=== PATIENT | male | born 1975 ===

== ENCOUNTER 2023-05-21 19:21 | Emergency (ER) | payer OTHER, SELFPAY ==
[2023-05-21] VITALS (7 sets, daily range): BP systolic 156–204; BP diastolic 89–126; PULSE 68–82; RESP 16–18; TEMP 36.7–37.1; O2SAT 96–99; BMI 21.3
--- NOTE | ~2023-05-21 | XR_ITS ---
EXAMINATION: XR CHEST CLINICAL INFORMATION: Chest pain COMPARISON: None available. TECHNIQUE: Frontal view of the chest was obtained. FINDINGS: No significant abnormality is noted involving the heart, lungs, mediastinum, bony thorax or soft tissues. XR/XR chest 1V IMPRESSION: Unremarkable chest examination.
--- NOTE | 2023-05-21 19:23 | ECG_ITS ---
Test Reason : CHEST PAIN Blood Pressure : / mmHG Vent. Rate : 073 BPM Atrial Rate : 073 BPM P-R Int : 148 ms QRS Dur : 080 ms QT Int : 390 ms P-R-T Axes : 070 014 021 degrees QTc Int : 429 ms Normal sinus rhythm Minimal voltage criteria for LVH, may be normal variant ( Sokolow-Muñoz ) Borderline ECG No previous ECGs available Referred By: Generic ED Physician Electronically Signed By:AVEL OGDEN MD
--- NOTE | 2023-05-21 19:51 | ED.CHESTPAIN ---
HPI - Chest Pain General Chief Complaint: Chest Pain Stated Complaint: chest pain, headache, high blood pressure Time Seen by Provider: 05/21/23 20:12 Source: patient Mode of arrival: ambulatory Limitations: no limitations History of Present Illness HPI narrative: Patient is a 47-year-old male who presents emergency department with multiple complaints. He states that in March of 2023 he was evaluated at [facility] for a kidney stone for which he had stent placement and was ultimately discharged home. He has yet to have a follow-up appointment with his primary care provider because it was noted that he was hypertensive during that hospital visit. His PCP appointment is scheduled for 05/29 through [place]. Over the past few weeks he has had intermittent episodes of diffuse headache, substernal/left anterior chest pain. He reports his symptoms were much more severe today and noted while he was outside leaf blowing he began feeling very hot in addition to having a severe sharp pain. His pain has been unchanged since its onset earlier this afternoon despite rest. He denies vision changes, dizziness, lightheadedness, neck pain, neck stiffness, shortness of breath, difficulty breathing, nausea vomiting, abdominal pain, numbness or tingling of the extremities. He additionally reports having rhinorrhea and a sore throat today. Related Data Previous Rx's Medication Instructions Recorded metoprolol tartrate 25 mg tablet 25 mg PO DAILY #30 tabs 05/22/23 Allergies Allergy/AdvReac Type Severity Reaction Status Date / Time morphine AdvReac Facial Verified 05/21/23 19:52 Swelling Review of Systems Review of Systems: Yes all other systems are reviewed and are negative [facility] Past Medical History Attestation statement: The following information was validated with the patient. Source: old records reviewed Social History Social History Smoked in Last 30 Days: Yes Use of substances other than those prescribed or required for medical reasons: Yes Substance Use Type: Marijuana Substance Use Frequency: Daily Advance Directives: No Physical Exam Vital Signs: Vital Signs: Last Vital Signs Temp 98.7 F 05/21/23 20:06 Pulse 68 05/21/23 22:19 Resp 16 05/21/23 22:19 BP 156/89 H 05/21/23 22:19 Pulse Ox 96 05/21/23 22:19 O2 Del Method Room Air 05/21/23 22:19 BMI result Body Mass Index 21.3 Appearance: Alert.?Oriented to person, place and time. No acute distress.?Normal affect. Eyes: Pupils equal, round and reactive to light.? ENT: Pharynx normal.?? Neck: Normal inspection.? Neck supple.?? CVS: Heart sounds normal. Normal heart rate and rhythm.? Pulses normal.?? Respiratory: No respiratory distress.? Lung sounds clear to auscultation bilaterally?? Abdomen: Soft and non-tender. Normoactive bowel sounds. Skin: Skin warm and dry.? Normal skin color.? ?? Extremities: No lower extremity edema.? No calf ttp? Neuro: Moves all extremities spontaneously. Sensation intact bilaterally. CN II-XII intact. No focal neuro deficits. Ambulates with normal steady gait. Course Course Course Narrative: RME - 47 yo male with history of kidney stones surgery in March presents to the ER for evaluation of elevated BP since then. BP has been reading 197/117. Also developed headache and chest pain that is constant, central and nonradiating that started today. Subjective fever today as well. BP 200/126 in triage Plan: to go to treatment room, EKG, labs, CXR, IV antihypertensives Reevaluation(s) Reevaluation #1: CBC is without leukocytosis, mild normocytic anemia not needing transfusion criteria. CMP is unremarkable, electrolytes and renal function within normal limits. Initial high sensitive troponin negative, EKG revealing normal sinus rhythm without acute ischemic findings, plan to obtain delta troponin. Urinalysis is without evidence of infection or proteinuria. No signs of end-organ damage at this time. COVID-19 influenza and strep testing are negative, oropharynx without evidence of peritonsillar retropharyngeal abscess, mild erythema present, suspect likely viral pharyngitis at this time Reevaluation #2: Delta troponin is negative, chest pain unlikely secondary to ACS. Chest significantly improved after receiving a labetalol IV. He is asymptomatic at this time. Discussed plan of care for discharge home a prescription for metoprolol tartrate 25mg daily and outpatient follow-up with PCP as scheduled. Reviewed worrisome signs and symptoms that would warrant re-evaluation in the emergency department. All questions answered. Stable for discharge. Time: 23:46 Medications Administered Discontinued Medications Generic Name Dose Route Start Last Admin Trade Name Freq PRN Reason Stop Dose Admin Aspirin 324 mg 05/21/23 20:55 05/21/23 21:20 Aspirin 81 Mg Tab.Chew PO 05/21/23 20:56 324 mg ONCE ONE Administration Labetalol HCl 10 mg 05/21/23 21:08 05/21/23 21:20 Labetalol Hcl 100 Mg/20 Ml Vial IVPUSH 05/21/23 21:09 10 mg ONCE ONE Administration Medical Decision Making Medical Decision Making [facility] Narrative: Patient is a 47-year-old male with reported past medical history of renal calculi and elevated blood pressure readings without diagnosis of hypertension presenting to emergency department today for evaluation of chest pain, headache, sore throat with rhinorrhea and hypertension. As per HPI, the chest pain and headache has been the occurring at least daily for the past 2-3 weeks. But today his symptoms are much more severe than they have been previously, and constant for the past 8 hours. Will obtain CBC to evaluate for leukocytosis/ anemia, BMP to evaluate for abnormal electrolytes /abnormal renal function, EKG and troponin to evaluate for ischemia/ACS. Chest x-ray to evaluate for consolidation/ infiltrate/ mass/ pulmonary congestion. Receive aspirin 324 mg p.o., in addition to Labetalol 10mg IV and re-evaluate Differential Diagnosis Differential Diagnoses: The differential diagnosis associated with the presentation includes (ACS, muscular strain, GERD, essential hypertension, tension headache, migraine, viral syndrome) Admission/Observation Consideration of admission/observation: Escalation of care including admission/observation considered (I considered admission for chest pain and uncontrolled hypertension, see course narrative for further detail) Lab Data [facility] Lab Attestation statement: I reviewed the patient's lab results. (See course narrative for further detail) 05/21/23 20:12 05/21/23 20:12 Labs: Lab Results 05/21/23 05/21/23 05/21/23 Range/Units 20:12 20:22 20:50 WBC 8.2 (4.8-10.8) X10*3/uL RBC 4.03 L (4.60-5.80) X10*6/uL Hgb 13.1 L (14.0-18.0) g/dl Hct 37.6 L (42.0-52.0) % MCV 93.3 (80.0-98.0) fL MCH 32.5 (27.0-33.0) pg MCHC 34.8 (31.0-36.0) g/dl RDW 13.0 (11.0-16.0) % Plt Count 295 (160-400) X10*3/uL MPV 8.5 L (9.4-12.4) fL Immature Gran % (Auto) 0.2 (0.0-0.4) % Neut % (Auto) 65.6 (45-73) % Lymph % (Auto) 23.7 (20-40) % [place] % (Auto) 9.2 (2-11) % Eos % (Auto) 0.9 (0-4) % Baso % (Auto) 0.4 (0-2) % Lymph # (Auto) 1.9 (1.2-4.9) X10*3/uL [place] # (Auto) 0.8 (0.1-1.2) X10*3/uL Eos # (Auto) 0.1 (0.0-0.4) X10*3/uL Baso # (Auto) 0.0 (0.0-0.2) X10*3/uL Abs Immat Gran (auto) 0.02 (0.00-0.03) X10*3/uL Absolute Neuts (auto) 5.4 (2.0-8.3) x10*3/uL Absolute Nucleated RBC 0.000 (0.0-0.012) X10*3/uL Nucleated RBC % (auto) 0.0 (0.0-0.2) /100WBC Sodium 138 (135-145) mmol/L Potassium 3.3 (3.3-5.1) mmol/L Chloride 103 (96-108) mmol/L Carbon Dioxide 22 (22-29) mmol/L Anion Gap 16 (12-20) BUN 13 (9-16) mg/dL Creatinine 0.68 (0.5-1.4) mg/dL Estim Creat Clear Calc 132.3 Estimated GFR > 60 Random Glucose 92 (60-115) mg/dL Calcium 9.7 (8.4-10.2) mg/dL Magnesium 1.9 (1.6-2.6) mg/dL Total Bilirubin 0.7 (0.0-1.0) mg/dL Direct Bilirubin 0.2 (0.0-0.5) mg/dL AST 39 H (5-37) U/L ALT 18 (0-40) U/L Alkaline Phosphatase 117 (39-117) U/L Troponin I High Sens < 2.7 (<3.5-35.0) ng/L Total Protein 7.5 (6.5-8.0) g/dL Albumin 4.2 (3.5-5.0) g/dL Urine Color Yellow Urine Appearance Clear Urine pH 6.5 (5.0-9.0) Ur Specific [place] 1.015 (1.005-1.025) Urine Protein Negative (Neg-Trace) mg/dL Urine Glucose (UA) Negative (Negative) mg/dL Urine Ketones Negative (Negative) mg/dL Urine Blood Negative (Negative) Urine Nitrite Negative (Negative) Ur Leukocyte Esterase Negative (Negative) Urine Opiates Screen Not Detected (Not Detect) Urine Fentanyl Screen Not Detected (Not Detect) Ur Barbiturates Screen Not Detected (Not Detect) Ur Phencyclidine Scrn Not Detected (Not Detect) Ur Amphetamines Screen Not Detected (Not Detect) U Benzodiazepines Scrn Not Detected (Not Detect) Urine Cocaine Screen Not Detected (Not Detect) U Marijuana (THC) Screen POSITIVE H (Not Detect) Ethyl Alcohol < 10 mg/dL COVID-19 (MARIANELA) Negative (Negative) COVID-19 Clin Com See Note Influenza Type A (KEATON) Negative (Negative) Influenza Type B ([place]ON) Negative (Negative) Influenza A & B Note See Note S. pyogenes GrpA [place] (Negative) 05/21/23 05/21/23 Range/Units 20:52 23:08 WBC (4.8-10.8) X10*3/uL RBC (4.60-5.80) X10*6/uL Hgb (14.0-18.0) g/dl Hct (42.0-52.0) % MCV (80.0-98.0) fL MCH (27.0-33.0) pg MCHC (31.0-36.0) g/dl RDW (11.0-16.0) % Plt Count (160-400) X10*3/uL MPV (9.4-12.4) fL Immature Gran % (Auto) (0.0-0.4) % Neut % (Auto) (45-73) % Lymph % (Auto) (20-40) % [place] % (Auto) (2-11) % Eos % (Auto) (0-4) % Baso % (Auto) (0-2) % Lymph # (Auto) (1.2-4.9) X10*3/uL [place] # (Auto) (0.1-1.2) X10*3/uL Eos # (Auto) (0.0-0.4) X10*3/uL Baso # (Auto) (0.0-0.2) X10*3/uL Abs Immat Gran (auto) (0.00-0.03) X10*3/uL Absolute Neuts (auto) (2.0-8.3) x10*3/uL Absolute Nucleated RBC (0.0-0.012) X10*3/uL Nucleated RBC % (auto) (0.0-0.2) /100WBC Sodium (135-145) mmol/L Potassium (3.3-5.1) mmol/L Chloride (96-108) mmol/L Carbon Dioxide (22-29) mmol/L Anion Gap (12-20) BUN (9-16) mg/dL Creatinine (0.5-1.4) mg/dL Estim Creat Clear Calc Estimated GFR Random Glucose (60-115) mg/dL Calcium (8.4-10.2) mg/dL Magnesium (1.6-2.6) mg/dL Total Bilirubin (0.0-1.0) mg/dL Direct Bilirubin (0.0-0.5) mg/dL AST (5-37) U/L ALT (0-40) U/L Alkaline Phosphatase (39-117) U/L Troponin I High Sens < 2.7 (<3.5-35.0) ng/L Total Protein (6.5-8.0) g/dL Albumin (3.5-5.0) g/dL Urine Color Urine Appearance Urine pH (5.0-9.0) Ur Specific [place] (1.005-1.025) Urine Protein (Neg-Trace) mg/dL Urine Glucose (UA) (Negative) mg/dL Urine Ketones (Negative) mg/dL Urine Blood (Negative) Urine Nitrite (Negative) Ur Leukocyte Esterase (Negative) Urine Opiates Screen (Not Detect) Urine Fentanyl Screen (Not Detect) Ur Barbiturates Screen (Not Detect) Ur Phencyclidine Scrn (Not Detect) Ur Amphetamines Screen (Not Detect) U Benzodiazepines Scrn (Not Detect) Urine Cocaine Screen (Not Detect) U Marijuana (THC) Screen (Not Detect) Ethyl Alcohol mg/dL COVID-19 (MARIANELA) (Negative) COVID-19 Clin Com Influenza Type A (KEATON) (Negative) Influenza Type B (KE[place]ON) (Negative) Influenza A & B Note S. pyogenes GrpA [place] Negative (Negative) Independent Interpretation I performed an independent interpretation of an: EKG and Plain X-Ray (I personally interpreted chest x-ray and agree with radiologist impression) Interpretation: Rate: 73 Rhythm:? Normal sinus rhythm [place]:? Normal Normal P waves.? Normal [place].?? Normal QRS complex.?? ST T wave :??No ST elevation, no ST depression, no T-wave inversion qTC:429 prior studies:? None available for review The study has been interpreted contemporaneously by me. Radiology Impression Discussion of test interpretation with radiology: I have reviewed the radiologist's reading. Radiologist Impression: XR/XR chest 1V IMPRESSION: Unremarkable chest examination. Independent Historian Clinical information obtained from an independent historian. History obtained from or confirmed by: Spouse (Present at bedside who confirms history) Prescription Management I considered prescription management with: Other (Metoprolol as per course narrative) Discharge Plan Discharge Clinical Impression: Hypertension, Chest pain Patient Disposition: Home, Self-Care Instructions: Chest Pain (ED), Heart Healthy Diet (ED), Hypertension (ED) Prescriptions: New metoprolol tartrate 25 mg tablet 25 mg PO DAILY Qty: 30 0RF Referrals: Yanely Lyons MD [Primary Care Provider] -
[2023-05-21 20:16] LABS: MANUAL DIFF FLAG NO
[2023-05-21 20:22] LABS: Basophils Percent Auto 0.4 % (0-2); Eosinophils Absolute Auto 0.1 X10*3/uL (0.0-0.4); Eosinophils Percent Auto 0.9 % (0-4); Hematocrit 37.6 % (42.0-52.0); Hemoglobin 13.1 g/dl (14.0-18.0); Imm Gran Abs Auto 0.02 X10*3/uL (0.00-0.03); Imm Gran Pct Auto 0.2 % (0.0-0.4); Lymphocytes Absolute Auto 1.9 X10*3/uL (1.2-4.9); Lymphocytes Percent Auto 23.7 % (20-40); Mean Corpuscular HGB Conc 34.8 g/dl (31.0-36.0); Mean Corpuscular Hemoglobin 32.5 pg (27.0-33.0); Mean Corpuscular Volume 93.3 fL (80.0-98.0); Mean Platelet Volume 8.5 fL (9.4-12.4); Monocytes Absolute Auto 0.8 X10*3/uL (0.1-1.2); Monocytes Percent Auto 9.2 % (2-11); Neutrophils Absolute Auto 5.4 x10*3/uL (2.0-8.3); Neutrophils Percent Auto 65.6 % (45-73); Platelet Count 295 X10*3/uL (160-400); Red Blood Count 4.03 X10*6/uL (4.60-5.80); White Blood Count 8.2 X10*3/uL (4.8-10.8)
--- NOTE | 2023-05-21 20:31 | PC.NURSE ---
pt reporting cp onset approx 1300 today after lunch (substernal/upper chest). pt denies sob/n/v/d/dizziness/uri sx. nsr on monitor 72 bpm. vss; bp elevated haydee pa aware. iv established, labs drawn. haydee pa at bedside for primary eval. call ames within reach.
[2023-05-21 20:46] LABS: COVID-19 Test Negative (Negative); IDNOW Serial# 08D9AD1C; IDNOW Serial# BCCEAD1C; Influenza A Negative (Negative); Influenza B2 Negative (Negative)
[2023-05-21 20:51] LABS: Ethanol < 10 mg/dL
[2023-05-21 20:54] LABS: Alanine Aminotransferase 18 U/L (0-40); Albumin Level 4.2 g/dL (3.5-5.0); Alkaline Phosphatase 117 U/L (39-117); Anion Gap 16 (12-20); Aspartate Amino Transferase 39 U/L (5-37); Bilirubin Direct 0.2 mg/dL (0.0-0.5); Bilirubin Total 0.7 mg/dL (0.0-1.0); Blood Urea Nitrogen 13 mg/dL (9-16); Calcium 9.7 mg/dL (8.4-10.2); Carbon Dioxide 22 mmol/L (22-29); Chloride 103 mmol/L (96-108); Creatinine Clr Calc Pharmacy 132.3; Estimated Glomerular Filt Rate > 60; Glucose Random 92 mg/dL (60-115); Magnesium 1.9 mg/dL (1.6-2.6); Potassium 3.3 mmol/L (3.3-5.1); Sodium 138 mmol/L (135-145); Total Protein 7.5 g/dL (6.5-8.0)
[2023-05-21 20:58] LABS: Appearance Urine Clear; Color Urine Yellow; Glucose Urine UA Negative (Negative); Leukocyte Esterase Urine Negative (Negative); Nitrite Urine Negative (Negative); PH 6.5 (5.0-9.0); Specific Gravity - Urine 1.015 (1.005-1.025); Urine Blood Negative (Negative); Urine Ketones Negative (Negative); Urine Protein Negative (Neg-Trace)
[2023-05-21 21:00] LABS: Troponin-I High Sensitivity < 2.7 ng/L (<3.5-35.0)
[2023-05-21 21:07] LABS: IDNOW Serial# 08D9AD1C; Strep A Nucleic Acid Negative (Negative)
[2023-05-21 21:08] LABS: Amphetamine Screen Urine Not Detected (Not Detect); Barbiturates, Urine Not Detected (Not Detect); Benzodiazepines Screen Urine Not Detected (Not Detect); Cannabinoid Screen Urine POSITIVE (Not Detect); Cocaine Screen Urine Not Detected (Not Detect); Fentanyl, urine Not Detected (Not Detect); Opiate Screen Urine Not Detected (Not Detect); Phencyclidine Screen Urine Not Detected (Not Detect)
[2023-05-21] MEDS: Aspirin 81 MG TAB.CHEW 324 MG PO (21:20)
[2023-05-21] MEDS: Labetalol HCL 100 MG/20 ML VIAL 10 MG IVPUSH (21:20)
[2023-05-21 23:45] LABS: Troponin-I High Sensitivity < 2.7 ng/L (<3.5-35.0)
[2023-05-22 00:18] VITALS: BP 159/95; PULSE 75; RESP 17; TEMP 36.7; O2SAT 96
[2023-05-22 00:41] VITALS: BP 159/95; PULSE 92; RESP 16; O2SAT 99
== END 2023-05-22 00:46 | disposition home or self-care (01) ==
PROVIDERS: Nurse Practitioner Family; Physician Assistant; Emergency Provider Emergency Medicine; PCP Family Medicine
DX: R07.89 Other chest pain (principal); R51.9 Headache, unspecified; Z11.52 Encounter for screening for COVID-19; Z20.822 Contact with and (suspected) exposure to COVID-19; Z79.899 Other long term (current) drug therapy
CPT/HCPCS: 36415; 71045; 80048; 80076; 80307; 81003; 83735; 84484; 85025; 87502; 87635; 87651; 93005; 96374; 99284; 99285

== ENCOUNTER 2023-06-25 08:13 | Emergency (ER) | payer OTHER, SELFPAY ==
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
--- NOTE | ~2023-06-25 | XR_ITS ---
EXAMINATION: XR LUMBOSACRAL SPINE CLINICAL INFORMATION: Back pain COMPARISON: None available. TECHNIQUE: Three views of the lumbosacral spine. FINDINGS: No fracture or destructive process. Vertebral body heights are preserved. Incidental note is made of tiny calcifications in the right upper quadrant presumably gallstones. Tiny calcifications as well seen in the left upper quadrant possibly overlying the stomach. XR/XR lumbar spine 2-3V IMPRESSION: Unremarkable study.
--- NOTE | ~2023-06-25 | XR_ITS ---
EXAMINATION: XR KNEE, LEFT CLINICAL INFORMATION: Knee pain COMPARISON: None available. TECHNIQUE: Four views of the left knee. FINDINGS: No joint effusion, fracture, dislocation or destructive process. XR/XR knee LT 4V IMPRESSION: Negative
[2023-06-25 08:25] VITALS: BP 135/97; PULSE 86; RESP 18; TEMP 36.4; O2SAT 98; BMI 21.3
[2023-06-25 11:52] VITALS: BP 142/98; PULSE 76; RESP 16; TEMP 36.9; O2SAT 97
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
--- NOTE | 2023-06-25 13:19 | PC.NURSE ---
pt returned to xray at this time.
[2023-06-25 14:42] VITALS: BP 153/94; PULSE 68; RESP 18; O2SAT 99
== END 2023-06-25 15:34 | disposition home or self-care (01) ==
PROVIDERS: Emergency Provider Emergency Medicine; PCP Family Medicine
DX: S13.4XXA Sprain of ligaments of cervical spine, initial encounter (principal); S80.02XA Contusion of left knee, initial encounter; V43.52XA Car driver injured in collision with other type car in traffic accident, initial encounter; W22.10XA Striking against or struck by unspecified automobile airbag, initial encounter; Y93.89 Activity, other specified; Y92.410 Unspecified street and highway as the place of occurrence of the external cause; Y99.9 Unspecified external cause status; M54.2 Cervicalgia; M25.562 Pain in left knee; M54.50 Low back pain, unspecified
CPT/HCPCS: 72100; 72125; 73564; 99284

== ENCOUNTER 2025-01-04 09:49 | Emergency (ER) | payer OTHER, SELFPAY ==
[2025-01-04] VITALS (8 sets, daily range): BP systolic 154–189; BP diastolic 109–135; PULSE 89–105; RESP 16–28; TEMP -17.7–36.9; O2SAT 95–96; BMI 21.8
--- NOTE | ~2025-01-04 | CT_ITS ---
EXAMINATION: CT ANGIOGRAM CHEST CLINICAL INFORMATION: Shop chest pain. Rule out dissection COMPARISON: None available. TECHNIQUE: Multiple axial images were obtained through the chest after the administration of 50 mL of Omnipaque 350 intravenous contrast. Extensive vascular post-processing including two-dimensional and three-dimensional reformatted images were created and reviewed on an independent workstation. This CT examination was performed using dose optimization techniques as appropriate, variously including the following: *Automated exposure control *Adjustment of mA and/or kV according to patient size (this includes techniques or standardized protocols for targeted exams where dose is matched to indication/reason for exam; i.e. extremities or head) *Use of iterative reconstruction technique DLP: 405 mGy/cm. FINDINGS: Chest: Vascular: The thoracic aorta is well-opacified without any aortic dissection. There is mild dilatation of ascending aorta with ascending aorta measuring 5.12 x 4.5 cm on axial slice 32/8, just above the aortic root. The arch and descending thoracic aorta are normal caliber. There is normal three-vessel branching of the aortic arch with widely patent lumen. Heart size is normal. No pericardial effusion seen. There is mild coronary artery calcifications present. Nonvascular: Mild centrilobular emphysema with expanded lungs. No acute pneumonic process seen. There is 5 mm nodule within the right major fissure likely fissural node. Focal atelectasis or scarring seen in the lingula laterally. 3 mm subpleural nodule is seen in right middle lobe axial image 39/3 and image 44/3. There is no pleural effusion or thickening. The thyroid lobes are symmetrical and normal. The central trachea and the bronchi are widely patent. No abnormal size mediastinal mass or lymphadenopathy seen. The bony thorax and visualized dorsal spine appears grossly unremarkable. Abdomen and pelvis: Vascular: The abdominal aorta is of normal caliber without aneurysm or dissection. There is normal branching of the descending abdominal aorta into symmetrical patent bilateral common iliac which in turn bifurcates into patent external and internal iliac arteries. There is mild calcified plaque seen in the right external iliac bifurcation into common femoral and profunda femoris artery. No stenosis seen. There is no dissection. Origins of celiac, superior mesenteric and JACE are widely patent. Nonvascular: Visualized liver, spleen and pancreas is unremarkable. No radiopaque gallstones, or wall thickening. Both kidney nephrograms are symmetric and normal. There is an lower leaf shaped radiopaque calculi lower pole right kidney measuring 1.2 cm x 9 mm. No caliectasis or hydronephrosis seen. There is a 4 mm radiopaque calculi mid pole and a semilunar shaped 1.5 cm calculi upper pole left kidney. No caliectasis or hydronephrosis seen. There is scattered stool and gas seen in colon without distention. There is nonspecific mural thickening involving the pyloric stomach, distal ascending colon The small bowel loops are normal caliber. Appendix is normal caliber. No free air or free fluid seen. The abdominal wall is unremarkable. The urinary bladder is nondistended without radiopaque calculi wall thickening. Prominent proximal bilateral inguinal canals containing fat.. No abnormal pelvic or inguinal lymph nodes. The prostate gland is normal size. Bone windows reveal no aggressive lytic or sclerotic process seen. CT/CT angio chest aorta IMPRESSION: Ascending aortic aneurysm as described above. No aneurysm or dissection in the thoracic or the abdominal segments. Lingular atelectasis and/or scarring. Small 5 mm right major fissure lymph node. 3 mm subpleural nodules in the right middle lobe, nonspecific. Nonobstructive bilateral radiopaque renal calculi largest in the upper pole left kidney measuring 1.5 cm. No hydronephrosis. Mild constipation. Fleischner guidelines were followed. Electronically signed by: Tio Mckeon MD 01/04/2025 03:40 PM EDT
--- NOTE | ~2025-01-04 | XR_ITS ---
EXAMINATION: XR CHEST CLINICAL INFORMATION: chest pain COMPARISON: 05/21/2023. TECHNIQUE: 2 views of the chest were obtained. FINDINGS: The cardiac, hilar, and mediastinal contours are normal. The lungs are clear bilaterally. There is no pneumothorax or pleural effusion. There is no focal osseous or soft tissue abnormality. XR/XR chest 2V IMPRESSION: No active pulmonary disease. Electronically signed by: Vitaly Bradley MD 01/04/2025 10:20 AM EDT
--- NOTE | ~2025-01-04 | CT_ITS ---
EXAMINATION: CT ANGIOGRAM ABDOMEN AND PELVIS FINDINGS/ CT/CT angio abdomen pelvis IMPRESSION: CTA abdomen and pelvis is dictated with CTA chest with contrast. Electronically signed by: Tio Mckeon MD 01/04/2025 03:44 PM EDT
--- NOTE | 2025-01-04 09:54 | ECG_ITS ---
Test Reason : chest pain Blood Pressure : */* mmHG Vent. Rate : 91 BPM Atrial Rate : 91 BPM P-R Int : 140 ms QRS Dur : 92 ms QT Int : 366 ms P-R-T Axes : 61 10 26 degrees QTcB Int : 450 ms Normal sinus rhythm Minimal voltage criteria for LVH, may be normal variant ( Sokolow-Muñoz ) Early repolarization Borderline ECG When compared with ECG of 21-May-2023 19:57, No significant change was found Referred By: Generic ED Physician Electronically Signed By: ALISA MUNSON
[2025-01-04 10:15] LABS: Basophils Percent Auto 0.5 % (0-2); Eosinophils Percent Auto 0.1 % (0-4); Hematocrit 37.8 % (42.0-52.0); Hemoglobin 13.3 g/dl (14.0-18.0); Imm Gran Abs Auto 0.02 X10*3/uL (0.00-0.03); Imm Gran Pct Auto 0.2 % (0.0-0.4); Lymphocytes Absolute Auto 0.9 X10*3/uL (1.2-4.9); Lymphocytes Percent Auto 11.4 % (20-40); MANUAL DIFF FLAG NO; Mean Corpuscular HGB Conc 35.2 g/dl (31.0-36.0); Mean Corpuscular Hemoglobin 33.8 pg (27.0-33.0); Mean Corpuscular Volume 95.9 fL (80.0-98.0); Mean Platelet Volume 8.8 fL (9.4-12.4); Monocytes Absolute Auto 1.2 X10*3/uL (0.1-1.2); Monocytes Percent Auto 14.9 % (2-11); Neutrophils Absolute Auto 5.9 x10*3/uL (2.0-8.3); Neutrophils Percent Auto 72.9 % (45-73); Platelet Count 260 X10*3/uL (160-400); Red Blood Count 3.94 X10*6/uL (4.60-5.80); Red Cell Distribution Width 13.5 % (11.0-16.0); White Blood Count 8.1 X10*3/uL (4.8-10.8)
[2025-01-04 10:22] LABS: Prothrombin Time 10.9 SEC (10.9-12.4)
[2025-01-04 10:34] LABS: Anion Gap 15 (12-20); Blood Urea Nitrogen 14 mg/dL (9-16); Calcium 9.1 mg/dL (8.4-10.2); Carbon Dioxide 24 mmol/L (22-29); Chloride 106 mmol/L (96-108); Creatinine Clr Calc Pharmacy 149.2; Estimated Glomerular Filt Rate > 60; Glucose Random 124 mg/dL (60-115); Potassium 3.6 mmol/L (3.3-5.1); Sodium 141 mmol/L (135-145)
[2025-01-04 10:45] LABS: Troponin-I High Sensitivity < 2.7 ng/L (<3.5-35.0)
--- OUTSIDE RECORDS SUMMARY | 2025-01-04 11:34 | XMS_ITS | Encounter Summary ---
Author Organization [facility] Address [address] [place] [address] Care Team Providers Care Aniline Press Worker Name Role Phone Yanely Lyons MD Primary Care Pr ovider Encounter Details Date Type Department Care Team (Late st Contact Info) Description 05/05/2024 3:14 PM EDT Hospital Encounter TH HISTORIC ENCOUNTERS EASTERN CONVERSION ONLY Allyn Dickson MD [address] [place] [id number] Social History Tobacco Use Types Packs/Day Years Used Date Smoking Tobacco: Every Day Cigarettes Smokeless Tobacco: Never Alcohol Use Standard Drinks/Week Comments Yes 0 (1 standard drink = 0.6 oz pur e alcohol) Sex and Gender Information Value Date Recorded Sex Assigned at Not on file Legal Sex Male 2:14 AM EST Gender Identity Not on file Sexual Orientation Not on file documented as of this encounter Last Filed Vital Signs Vital Sign Reading Time Taken Comments Blood Pressure 129/86 05/05/2024 3:48 PM EDT Sitting Left arm Pulse 79 05/05/2024 3:48 PM EDT Temperature - - Respiratory Rate - - Oxygen Saturation - - Inhaled Oxygen Concentration - - Weight 76 kg (167 lb 9.6 oz) 05/05/2024 3:48 PM EDT Height 185.4 cm (6' 1 ) 04/14/2024 3:36 PM EDT Body Mass Index 22.11 04/15/2024 3:10 PM EDT documented in this encounter Progress Notes * Allyn Dickson MD - 05/05/2024 4:00 PM EDT CHIEF COMPLAINT: Follow-up IDENTIFIER:Wolfgang Olmedo is a 48 y.o. male. HPI: 48-year-old Romanian-speaking man, who has history of alcohol abuse, came to me few weeks ago regarding evaluation and ruling out hemochromatosis, patient found to have elevated ferritin and elevated liver enzyme ROS: Has been feeling fair No significant change from previous visit of 04/14/2024 PAST MEDICAL HISTORY: Hypertension Nephrolithiasis Alcohol abuse Marijuana use Nicotine addiction GERD ?? PAST SURGICAL HISTORY: Kidney stone surgery x 2 ?? 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 FAMILY HISTORY: Noncontributory Current Outpatient Medications: ??? losartan (COZAAR) tablet 50 mg, Take 1 tablet (50 mg total) by mouth daily., Disp: , Rfl: ??? metoprolol succinate (TOPROL-XL) 24 hr tablet 50 mg, Take by mouth daily., Disp: , Rfl: ??? omeprazole (PriLOSEC) 20 MG capsule, Take 1 capsule (20 mg total) by mouth daily., Disp: , Rfl: You are allergic to the following Date Reviewed: 05/05/2024 Allergen Reactions Morphine Not Noted PHYSICAL EXAM: BP 129/86 (BP Location: Left arm) Pulse 79 Temp 97.7 ??F (36.5 ??C) (Temporal) Wt 76 kg (167 lb 9.6 oz) SpO2 100% BMI 22.11 kg/m?? ECOG 0 APPEARANCE: Alert and oriented in no acute distress EYES: nonicteric sclera pink conjunctiva ORAL CAVITY: No erythema or exudates NECK: Neck supple, no significant adenopathy, HEART: normal S1 and S2 LUNG: clear to auscultation bilaterally LYMPH NODES: No palpable superficial adenopathy ABDOMEN: soft, nontender and no organomegaly appreciated EXTREMITIES: No edema erythema tenderness LABS: DNA analysis for hemochromatosis gene showed no evidence of any mutation Iron saturation only 22% Ferritin 569 SGOT 79, SGPT 69 and alk phos 127 with total bilirubin of 0.5 WBC 5.7, hemoglobin 12.5 g and platelet count 282 with MCV of 101 IMPRESSION: SNOMED CT(R) 1. Elevated ferritin level PROTEIN LEVEL - FINDING 2. Alcohol abuse ALCOHOL ABUSE 48-year-old Romanian-speaking man, who had elevated liver enzyme most likely secondary to alcohol abuse, patient during workup found to have elevated ferritin so referred to me to rule out hemochromatosis, on my workup there is no evidence of hemochromatosis, his DNA analysis for hemochromatosis gene test showed no mutation as well as iron saturation is only 22% so most likely patient does not have any iron overload disorder, his elevated liver enzymes are secondary to his alcohol abuse, I did counseling on alcohol consumption and explained patient about not having hemochromatosis and his elevated liver enzyme is secondary to his alcohol abuse. PLAN: Return to office as needed Allyn Dickson MD documented in this encounter Plan of Treatment Upcoming Encounters Date Type Department Care Team (Late st Contact Info) Description 01/19/2025 2:30 PM EDT Office Visit [address] [id number] Isaura Youngblood PA [address] [place] [address] documented as of this encounter Procedures Procedure Name Priority Date/Time Associated Diagnosis Comments ..MISCELLANEOUS REFERENCE LAB TEST 05/05/2024 ..MISCELLANEOUS REFERENCE LAB TEST 05/05/2024 documented in this encounter Results * Miscellaneous reference lab test (05/05/2024) Provider Onbase MD LAB BLOOD ORDERABLES Final Re sult * Miscellaneous reference lab test (05/05/2024) us Provider Onbase MD LAB BLOOD ORDERABLES Final Re sult documented in this encounter Visit Diagnoses Not on filedocumented in this encounter Care Teams Aniline Press Worker Relationship Specialty Start Date End Date Yanely Lyons MD PCP - General 05/12/23 documented as of this encounter
--- NOTE | 2025-01-04 14:11 | PC.NURSE ---
Pt A&O X4 VSS [id number] to full monitor- states CP with breathing- Hypertensive- provider notified- pt is on RA at 96% will clarify O2 order. IV inserted. Awaiting orders pt in NAD
--- NOTE | 2025-01-04 14:24 | ED_ITS ---
HPI - Chest Pain General Chief Complaint: Chest Pain Stated Complaint: Chest pain Time Seen by Provider: 01/04/25 13:39 History of Present Illness HPI narrative: Patient is a 49-year-old male presents today with having chest pain. That is mid chest. It started around 08:00. It goes to his back. No history of PE. No travel history. Positive history of smoking. Patient's pain is sharp does not radiate. Has a history of hypertension as noncompliant with his medications. Currently on losartan 50 mg. On metoprolol 25 mg. Both 1 tablet daily. No coughing or congestion or upper respiratory symptoms. No abdominal pain. Patient is from home. Related Data Previous Rx's ?Medication ?Instructions ?Recorded metoprolol tartrate 25 mg tablet 25 mg PO DAILY #30 tabs 05/22/23 losartan 50 mg tablet 50 mg PO DAILY #30 tabs 01/04/25 metoprolol tartrate 25 mg tablet 25 mg PO DAILY #30 tabs 01/04/25 omeprazole 20 mg capsule,delayed 20 mg PO DAILY #30 caps 01/04/25 release Allergies Allergy/AdvReac Type Severity Reaction Status Date / Time morphine AdvReac Facial Verified 01/04/25 09:53 Swelling Review of Systems 2 Review of Systems: Positive sharp chest pain Yes all other systems are reviewed and are negative PMFSH Past Medical History Attestation statement: The following information was validated with the patient. Social History Social History Alcohol intake: current Alcohol intake frequency: holidays/special occasions only Alcohol type: beer and hard liquor Smoked in Last 30 Days: Yes Substance Use Type: Marijuana Substance Use Frequency Other:: 2 joints per day Any prior treatment program specific to substance use: No Advance Directives: No Advance Directives Information Provided: Yes Physical Exam 2 Vital Signs: Vital Signs: Last Vital Signs Temp 98.5 F 01/04/25 13:48 Pulse 89 01/04/25 16:35 Resp 16 01/04/25 16:35 BP 175/113 H 01/04/25 16:35 Pulse Ox 95 01/04/25 16:35 O2 Del Method Room Air 01/04/25 16:35 BMI result Body Mass Index 21.8 Appearance: Alert. Oriented X3. No acute distress. Eyes: Pupils equal, round and reactive to light. ENT: Pharynx normal. Neck: Normal inspection. Neck supple. No lymph nodes noted. No crepitus CVS: Normal heart rate and rhythm. Pulses normal. Normal S1 and S2 Respiratory: No respiratory distress. Breath sounds normal. No Wheezing. No rales Abdomen: Soft and nontender. No rigidity. No distention. good BS x4 Skin: Skin warm and dry. Normal skin color. Normal skin turgor. Extremities: No lower extremity edema. Neurovascular intact to all extremities. No Lacerations. No Rash Neuro: Oriented X 3. No motor deficit. No sensory deficit. Moving all extermities. No slurred speech Medications Administered Discontinued Medications Generic Name Dose Route Start Last Admin Trade Name Freq PRN Reason Stop Dose Admin Al Hydroxide/Mg Hydroxide 30 ml 01/04/25 14:22 01/04/25 14:37 Magnesium Hydrox/Alum Hydrox 30 Ml Oral.Susp PO 01/04/25 14:23 30 ml ONCE ONE Administration Iohexol 100 ml 01/04/25 14:44 01/04/25 14:45 Iohexol 350 Mg/Ml 100 Ml Infus..Btl IV 01/04/25 14:45 100 ml ONCE ONE Administration Losartan Potassium 50 mg 01/04/25 14:22 01/04/25 14:37 Losartan Potassium 50 Mg Tablet PO 01/04/25 14:23 50 mg ONCE ONE Administration Protocol Metoprolol Tartrate 25 mg 01/04/25 14:22 01/04/25 14:36 Metoprolol Tartrate 25 Mg Tablet PO 01/04/25 14:23 25 mg ONCE ONE Administration Protocol Medical Decision Making Medical Decision Making [facility] Narrative: My interpretation patient's EKG showed a sinus rhythm heart rate is 80 [place] QRS QTC normal there is J-point elevations noted When compared to an old EKG from 2022 it is old. Pain is unchanged from previous. Has chest pain going to the back. Atypical for ACS. Patient's 1st set of enzymes are negative. Has significant risk factors including hypertension and smoking. He 2nd set of enzymes. In the setting of atypical history to risk factor 49 years old negative enzyme patient's heart score is less than 3. Will nevertheless also assess patient aorta. Patient has chest pain that was sharp very abrupt in onset with a history of smoking history of elevated blood pressure. Will get a CTA of the chest abdomen pelvis. Currently in stable condition discussed with patient the need to have his medication refill. I did refill his medication for 30 days so he can get close follow-up on an outpatient basis. patient's CTA of the chest abdomen pelvis was negative for dissection. History not consistent with PE there is no pneumonia no pneumothorax noted. A 2nd set troponin to be done if it is negative will discharge patient home. Explained to patient need to take his blood pressure medication. Close follow-up on an outpatient basis. 2nd set of troponin was negative. There is pulmonary nodules noted. Will have patient follow-up on outpatient basis for the CTA finding. Currently in stable condition. Blood pressure came down with monitoring and blood pressure medication explained to patient the need to take his medicine on a regular basis patient states understanding. Will discharge home. Explained to patient still needs close follow-up was chest pain. Differential Diagnosis Differential Diagnoses: The differential diagnosis associated with the presentation includes Dissection, ACS, pneumonia, pneumothorax, rib fracture Admission/Observation Consideration of admission/observation: Escalation of care including admission/observation considered considered admission but blood pressure came down patient's troponin negative heart score is less than 3 decided to discharge patient home Lab Data MDM Lab Attestation statement: I reviewed the patient's lab results. 01/04/25 10:05 01/04/25 10:05 Labs: Lab Results 01/04/25 01/04/25 Range/Units 10:05 16:24 WBC 8.1 (4.8-10.8) X10*3/uL RBC 3.94 L (4.60-5.80) X10*6/uL Hgb 13.3 L (14.0-18.0) g/dl Hct 37.8 L (42.0-52.0) % MCV 95.9 (80.0-98.0) fL MCH 33.8 H (27.0-33.0) pg MCHC 35.2 (31.0-36.0) g/dl RDW 13.5 (11.0-16.0) % Plt Count 260 (160-400) X10*3/uL MPV 8.8 L (9.4-12.4) fL Immature Gran % (Auto) 0.2 (0.0-0.4) % Neut % (Auto) 72.9 (45-73) % Lymph % (Auto) 11.4 L (20-40) % [place] % (Auto) 14.9 H (2-11) % Eos % (Auto) 0.1 (0-4) % Baso % (Auto) 0.5 (0-2) % Lymph # (Auto) 0.9 L (1.2-4.9) X10*3/uL [place] # (Auto) 1.2 (0.1-1.2) X10*3/uL Eos # (Auto) 0.0 (0.0-0.4) X10*3/uL Baso # (Auto) 0.0 (0.0-0.2) X10*3/uL Abs Immat Gran (auto) 0.02 (0.00-0.03) X10*3/uL Absolute Neuts (auto) 5.9 (2.0-8.3) x10*3/uL Absolute Nucleated RBC 0.000 (0.0-0.012) X10*3/uL Nucleated RBC % (auto) 0.0 (0.0-0.2) /100WBC PT 10.9 (10.9-12.4) SEC INR 1.0 (0.9-1.1) Sodium 141 (135-145) mmol/L Potassium 3.6 (3.3-5.1) mmol/L Chloride 106 (96-108) mmol/L Carbon Dioxide 24 (22-29) mmol/L Anion Gap 15 (12-20) BUN 14 (9-16) mg/dL Creatinine 0.62 (0.5-1.4) mg/dL Estim Creat Clear Calc 149.2 Estimated GFR > 60 Random Glucose 124 H (60-115) mg/dL Calcium 9.1 D (8.4-10.2) mg/dL Troponin I High Sens < 2.7 < 2.7 (<3.5-35.0) ng/L Independent Interpretation I performed an independent interpretation of an: EKG ( sinus heart rate is 90 IL QRS QTC normal no acute ST segment elevation no change from previous) and CT Scan ( CT head grossly negative for any acute evidence of bleeding. CTA chest abdomen pelvis showed no gross dissection.) Radiology Impression Discussion of test interpretation with radiology: I have reviewed the radiologist's reading. Chronic Conditions Patient?s care impacted by: Hypertension Smoker, family history Social Determinants Patient?s care significantly limited by Social Determinants of Health including: Problems related to primary support group Discharge Plan Discharge Clinical Impression: Chest pain Patient Disposition: Home, Self-Care Instructions: Chest Pain (DC) Additional Instructions: pulmonary nodules was noted on your CAT scan. Follow-up required. Risk of cancer exists. Small 5 mm right major fissure lymph node. 3 mm subpleural nodules in the right middle lobe, nonspecific. Prescriptions: New metoprolol tartrate 25 mg tablet 25 mg PO DAILY Qty: 30 0RF omeprazole 20 mg capsule,delayed release(DR/EC) 20 mg PO DAILY Qty: 30 0RF losartan 50 mg tablet 50 mg PO DAILY Qty: 30 0RF No Action metoprolol tartrate 25 mg tablet 25 mg PO DAILY Qty: 30 0RF Referrals: Yanely Lyons MD [Primary Care Provider] - 01/07/25 Print Language: Slovak
[2025-01-04] MEDS: Metoprolol Tartrate 25 MG TABLET PO (14:36)
[2025-01-04] MEDS: Magnesium Hydrox/Alum Hydrox 30 ML ORAL.SUSP PO (14:37)
[2025-01-04] MEDS: Losartan Potassium 50 MG TABLET PO (14:37)
[2025-01-04] MEDS: iohexoL 350 MG/ML 100 ML INFUS..BTL IV (14:45)
--- NOTE | 2025-01-04 16:28 | PC.NURSE ---
Repeat Troponin completed
[2025-01-04 16:56] LABS: Troponin-I High Sensitivity < 2.7 ng/L (<3.5-35.0)
--- NOTE | 2025-01-04 18:36 | PC.NURSE ---
Dr Suero aware of BP, okay to d/c with plan to f/u outpt
== END 2025-01-04 18:54 | disposition home or self-care (01) ==
PROVIDERS: Emergency Provider Emergency Medicine Emergency Medical Services; PCP Family Medicine
DX: R07.9 Chest pain, unspecified (principal)
CPT/HCPCS: 36415; 71046; 71275; 74174; 80048; 84484; 85025; 85610; 93005; 99283; 99285; Q9967

== ENCOUNTER → 2025-01-04 09:54 | Outpatient (BNV) | payer OTHER, SELFPAY | PROVIDERS: Emergency Provider Emergency Medicine Emergency Medical Services; PCP Family Medicine; Visit Provider Internal Medicine | DX: R07.9 Chest pain, unspecified (principal) | CPT/HCPCS: 93010 ==

== ENCOUNTER → 2025-01-04 10:12 | Outpatient (BNV) | payer OTHER, SELFPAY | PROVIDERS: PCP Family Medicine; Visit Provider Radiology Diagnostic Radiology | DX: I71.21 Aneurysm of the ascending aorta, without rupture (principal); I89.8 Other specified noninfective disorders of lymphatic vessels and lymph nodes; R91.8 Other nonspecific abnormal finding of lung field; N20.0 Calculus of kidney; R07.9 Chest pain, unspecified | CPT/HCPCS: 71046; 71275; 74174 ==